=== PATIENT | female | born 1955 | race Caucasian/White ===

== ENCOUNTER → 2024-09-05 13:30 | Outpatient (CLI) | payer MEDICARE, OTHER, SELFPAY ==
--- NOTE | 2024-09-05 13:42 | DI.US.S_ITS ---
PROCEDURE: US THYROID INDICATIONS: LT SIDED GLOBUS DYSPHAGIA W/POSSIBLE SWELLING x 1MO TECHNIQUE: Real-time scanning was performed of the thyroid gland, with image documentation. COMPARISON: None. FINDINGS: Thyroid: Right lobe measures 1.8 x 1.7 by 5.4 cm. Left lobe measures 1.9 x 2.0 x 5.2 cm. Isthmus is 0.4 cm thick. Echotexture is slightly heterogeneous bilaterally, best seen at the lower 3rd of the right thyroid gland, but there is no thyroid mass or cyst. The submandibular glands bilaterally appear normal. No cervical adenopathy is seen. During scanning bilateral carotid calcific and soft plaque is noted, at the carotid bifurcation and extending cephalad into the internal carotid arteries.. IMPRESSION: No thyroid mass is found, no cervical adenopathy is seen. Normal appearing submandibular glands bilaterally. Mild nonspecific heterogeneity of the thyroid echotexture, and the thyroid appears normal in size bilaterally and at the isthmus. Incidental note is made of bilateral calcific and soft plaquing at the carotid bifurcation and proximal internal carotid arteries. Dictated by: Chito Causey M.D. on 09/07/2024 at 7:56 Approved by: Chito Causey M.D. on 09/07/2024 at 8:00
== END ==
LOC: US 13:40
PROVIDERS: PCP Physician Assistant; Referring Provider Physician Assistant; Visit Provider Physician Assistant
DX: I65.23 Occlusion and stenosis of bilateral carotid arteries (principal); R13.10 Dysphagia, unspecified; R09.A2 Foreign body sensation, throat
CPT/HCPCS: 76536

== ENCOUNTER 2025-01-08 14:15 | Outpatient (RCR) | payer MEDICARE, OTHER, SELFPAY | END 2025-01-08 16:15 | LOC: CAR 14:15 | PROVIDERS: PCP Physician Assistant; Referring Provider Internal Medicine Cardiovascular Disease; Visit Provider Internal Medicine Cardiovascular Disease | DX: I21.4 Non-ST elevation (NSTEMI) myocardial infarction (principal) | CPT/HCPCS: 93798 ==